=== PATIENT | male | born 1970 | race Caucasian/White ===

== ENCOUNTER → 2020-07-22 11:24 | Outpatient (CLI) | payer BC | END | disposition home or self-care (01) | LOC: D.HCCARDIO 11:24 | PROVIDERS: ATTEND Internal Medicine Cardiovascular Disease | DX: I20.9 Angina pectoris, unspecified (principal) ==

== ENCOUNTER 2020-08-11 10:35 | Day surgery (SDC) | payer BC ==
[~2020-08-11] VITALS: Ht 175.3 cm; Wt 132.5 kg
--- NOTE | ~2020-08-11 | HEMODYNAMI ---
PATIENT:REGINE SMITH MEDICAL RECORD: [id number] : 74 LOCATION:D.CAT ADMISSION DATE: 08/11/20 Generatedon:08/11/202013:33 Patient name: REGINE SMITH Patient #: [id number] : 1970 Date of study: 08/11/2020 Page: Of Hemodynamic Procedure Report Patient Data Patient Demographics Procedure consent was obtained First Name: REGINE Gender: Male Last Name: SARAH : 1970 Middle Initial: SYLVESTER Age: 49 year(s) Patient #: [id number] Race: SSN: [id number] Additional ID: [id number] Contact details Address: [place] [address] State: [place] City: [place] Zip code: [address] Admission Admission Data Admission Date: 08/11/2020 Admission Time: 10:35 Arrival Date: 08/11/2020 Arrival Time: 13:00 Admit Source: Other Insurance Payor: Private health insurance [facility] #: [id number] Lab Results Lab Result Date: 08/11/2020 Lab Result Time: 0:00 Biochemistry Name Units Result Min Max BUN mg/dl 10 --(-*--)-- 7 18 Creatinine mg/dl 1.1 --(--*-)-- 0.6 1.3 eGFR ml/min 76.27542 *-(----)-- 90 120 NONAFRICAN CBC Name Units Result Min Max Hemoglobin g/dl 16 --(--*-)-- 13.5 17.5 Procedure Procedure Types Cath Procedure Diagnostic Procedure C [facility] w/Coronaries Sedation Charges Moderate Sedation up to 15 minutes Procedure Description Procedure Date Procedure Date: 08/11/2020 Procedure Start Time: 13:17 Procedure End Time: 13:30 Procedure Staff Name Function Zachary Sommers MD Performing Physician Amanda Cid RT Monitor Rigoberto Jimenez RT Scrub Radha Myers RN Nurse Procedure Data Cath Procedure Fluoroscopy Diagnostic fluoroscopy Total fluoroscopy Time: 2.6 time: 2.6 min min Diagnostic fluoroscopy Total fluoroscopy dose: 852 dose: 852 mGy mGy Contrast Material Contrast Material Type Amount (ml) Isovue 300 57 Entry Location Entry Primary Successful Side Size Upsize Upsize Entry Closure Ruiz ccessful Closure Location (Fr) 1 (Fr) 2 (Fr) Remarks Device Remarks Radial Right 6 Fr Mechanical artery Short Compression Estimated blood loss: 5 ml Diagnostic catheters Device Type Used For End Catheter Placement DIAGNOSTIC King 110cm Multi-vessel 5Fr catheter ([id number]) Angiography DIAGNOSTIC Harman 110cm 5 Multi-vessel Fr catheter ([id number]) Angiography Procedure Complications No complications Procedure Medications Medication Administration Route Dosage Oxygen etCO2 Nasal cannula 2 l/min Heparin Flush Bag added to field 2 bags (1000units/500ml NS) Lidocaine 2% added to field 20 Radial Cocktail added to field 1 syringe (Verapamil 2mg/Nitro 400mcg/Heparin 1500units) 0.9% NaCl I.V. 100 ml/hr Fentanyl I.V. 50 mcg Versed I.V. 1 mg Fentanyl I.V. 50 mcg Versed I.V. 1 mg Radial Cocktail I.A. 1 syringe (Verapamil 2mg/Nitro 400mcg/Heparin 1500units) Hemodynamics Rest HGB: 16 (g/dl) Heart Rate: 75 (bpm) Pressure Samples Time Site Value (mmHg) Purpose Heart Use Rate(bpm) 13:20 LV 134/1,14 Snapshot 90 Gradients Valve Time Site Site Mean SEP/DFP Peak To Heart Use 1 2 (mmHg) (sec/min) Peak Rate (mmHg) (bpm) Aortic 13:21 LV AO 108 Snapshots Pre Cath Intra NCS Post Cath Vital Signs Time Heart Resp SPO2 etCO2 NIBP (mmHg) Rhythm Pain Sedation Rate (ipm) (%) (mmHg) Status Level (bpm) 13:04:35 81 19 96 23.3 135/82(106) NSR 0 (11) 10(A) , No pain 13:08:49 81 13 95 15.8 134/80(120) NSR 0 (11) 10(A) , No pain 13:12:57 82 12 96 34.6 127/82(109) NSR 0 (11) 10(A) , No pain 13:17:09 83 12 96 20.3 120/80(100) NSR 0 (11) 9(A) , No pain 13:21:23 66 13 96 24.8 113/49(71) NSR 0 (11) 9(A) , No pain 13:25:33 91 13 96 26.3 128/77(91) NSR 0 (11) 9(A) , No pain 13:29:47 85 13 96 32.4 132/76(104) NSR 0 (11) 9(A) , No pain Medications Time Medication Route Dose Verified Delivered Reason Notes Effectiveness by by 13:03:02 Oxygen etCO2 2 l/min Radha Radha for low 02 Nasal Lucia Myers, sats cannula RN RN 13:03:10 Heparin Flush added 2 bags Radha Radha used for Bag to Lucia Myers procedure (1000units/500ml field RN RN NS) 13:03:18 Lidocaine 2% added 20ml Radha Zachary for local to vial Matthieu Myers MD anesthetic field RN 13:03:29 Radial Cocktail added 1 Radha Radha for (Verapamil to syringe Lucia Myers, vasodilation 2mg/Nitro field RN RN 400mcg/Heparin 1500units) 13:03:41 0.9% NaCl I.V. 100 Radha Radha Per ml/hr Lucia Myers, physician RN RN 13:12:23 Fentanyl I.V. 50 mcg Radha Radha for sedation Lucia Myers, RN RN 13:12:29 Versed I.V. 1 mg Radha Radha for sedation Lucia Myers, RN RN 13:16:52 Fentanyl I.V. 50 mcg Radha Radha for sedation Lucia Myers, RN RN 13:16:55 Versed I.V. 1 mg Radha Radha for sedation Lucia Myers, RN RN 13:19:26 Radial Cocktail I.A. 1 Radha Zachary for (Verapamil syringe Matthieu Myers MD vasodilation 2mg/Nitro RN 400mcg/Heparin 1500units) Procedure Log Time Note 12:36:03 Diagnostic Cath Status : Elective 12:36:44 Informed consent obtained and on chart 12:38:37 Arrival Date: 08/11/2020 1:00:00 PM 12:38:59 Admit Source: Other 12:39:06 Insurance Payor : Private health insurance 12:44:51 Lab Result : BUN 10 mg/dl 12:44:51 Lab Result : eGFR NONAFRICAN 76.64162 ml/min 12:44:51 Lab Result : Hemoglobin 16 g/dl 12::51 Lab Result : Creatinine 1.1 mg/dl 12:45:06 Procedure Status Elective Heart Cath (OP). 12:45:10 Zachary Sommers MD sent for patient. Start room use. 12:45:11 Time tracking: Regular hours (M-F 7:00 - 5:00) 12:45:16 Plan of Care:Hemodynamics will remain stable., Cardiac rhythm will remain stable., Comfort level will be maintained., Respiratory function will remain adequate., Patient/ family verbilizes understanding of procedure., Procedure tolerated without complication., Recovers from procedure without complications.. 12:53:02 Patient received from Pre/Post Procedure Room to CCL 2 Alert and oriented. Tansferred to table in Supine position. 12:53:08 Warm blankets applied, and shan hugger turned on for patient comfort. 12:53:08 Correct patient and procedure confirmed by team. 12:53:09 ECG and BP/O2 sat monitors applied to patient. 12:53:10 Pre-procedure instructions explained to patient. 12:53:11 Pre-op teaching completed and patient verbalized understanding. 13:03:02 Oxygen 2 l/min etCO2 Nasal cannula was administered by Radha Myers RN; for low 02 sats; Verbal order read back and verified. 13:03:10 Heparin Flush Bag (1000units/500ml NS) 2 bags added to field was administered by Radha Myers RN; used for procedure; Verbal order read back and verified. 13:03:18 Lidocaine 2% 20ml vial added to field was administered by Zachary Sommers MD; for local anesthetic; Verbal order read back and verified. 13:03:27 Vital chart was started 13:03:29 Radial Cocktail (Verapamil 2mg/Nitro 400mcg/Heparin 1500units) 1 syringe added to field was administered by Radha Myers RN; for vasodilation; Verbal order read back and verified. 13:03:29 Baseline sample Acquired. 13:03:35 Rhythm: sinus tachycardia 13:03:36 Full Disclosure recording started 13:03:39 Family in patients room. 13:03:41 0.9% NaCl 100 ml/hr I.V. was administered by Radha Myers RN; Per physician; Verbal order read back and verified. 13:03:41 Patient NPO since Midnight. 13:03:42 Is the patient allergic to Iodine/contrast media? No. 13:03:43 Was the patient premedicated? Yes 13:03:47 Is patient on blood thinner?Yes 13:03:49 ACC The patient was administered the following blood thiners within the last 24 hours: ACCAspirin 13:03:51 Patient diabetic? No. 13:03:56 Previous problem with sedation/anesthesia? No ? 13:03:58 Snore? Yes 13:04:00 Sleep apnea? Yes 13:04:03 Deviated septum? No 13:04:04 Opens mouth fully? Yes 13:04:05 Sticks out tongue? Yes 13:04:09 Airway obstruction? No ? 13:04:13 Dentures? No ? 13:04:17 Pre procedure: right dorsailis pedis pulse 2+ Normal; easily identifiable; not easily obliterated 13:04:19 Pre procedure: left dorsailis pedis pulse 2+ Normal; easily identifiable; not easily obliterated 13:04:21 Patient pain scale 0/10 ?. 13:04:23 Modified Alcides's test Radial < 7 seconds 13:04:30 IV patent on arrival in left forearm with 0.9% NaCl at O. 13:04:33 Lab results completed and on chart. 13:04:49 Stress Test: yes; abnormal inferior 13:05:04 Right Radial & Right Groin area was prepped with chlora-prep and draped in sterile fashion 13:05:04 Alarms reviewed by R. N. 13:05:05 Sharps counted by scrub and verified by R.N. 13:05:10 Physician arrived 13:05:11 --------ALL STOP TIME OUT------ 13:05:11 Final Timeout: patient, procedure, and site verified with staff and physician. All members of the team are in agreement. 13:05:14 Right Radial & Right Groin site verified by team. 13:05:17 Fire Safety Assessment: A--An alcohol-based skin anteseptic being used preoperatively., C--Open oxygen or nitrous oxide is being used., D--An ESU, laser, or fiber-optic light is being used. 13:05:20 Physical assessment completed. ASA score P 2 - A patient with mild systemic disease as per Zachary Sommers MD. 13:06:00 2) 60-89 Mildly reduced kidney function, and other findings (as for stage 1) point to kidney disease. 13:06:32 Maximum allowable contrast dose (3.7 X eGFR X 0.75)210 ml. 13:06:36 Sedation plan: IV Moderate Sedation Medication:Versed, Fentanyl 13:06:40 Use device set Radial Dx or PCI 13:06:41 ACIST Syringe (94395) opened to sterile field. 13:06:42 Medline Cath Pack ([id number]) opened to sterile field. 13:06:42 Bag Decanter (2002S) opened to sterile field. 13:06:42 ACIST Hand Control (61705) opened to sterile field. 13:06:43 ACIST Manifold (14199) opened to sterile field. 13:06:43 Tegaderm 4 x 4 (1626W) opened to sterile field. 13:06:44 MBrace Wrist Support ([id number]) opened to sterile field. 13:06:44 NEEDLE Cook 21G 4cm Radial (M52770) opened to sterile field. 13:06:46 SHEATH 6FR RAIN (6272696) opened to sterile field. 13:06:47 EMERALD Guide Wire (031-111) opened to sterile field. 13:12:23 Fentanyl 50 mcg I.V. was administered by Radha Myers RN; for sedation; Verbal order read back and verified. 13:12:29 Versed 1 mg I.V. was administered by Radha Myers RN; for sedation; Verbal order read back and verified. 13:16:52 Fentanyl 50 mcg I.V. was administered by Radha Myers RN; for sedation; Verbal order read back and verified. 13:16:55 Versed 1 mg I.V. was administered by Radha Myers RN; for sedation; Verbal order read back and verified. 13:17:20 Procedure started. 13:17:33 Local anesthetic to right radial artery with Lidocaine 2% by Zachary Sommers MD.INITIAL ACCESS ONLY 13:18:53 Zero performed for pressure channel P1 13:19:08 A 6 Fr Short sheath was inserted into the Right Radial artery 13:19:26 Radial Cocktail (Verapamil 2mg/Nitro 400mcg/Heparin 1500units) 1 syringe I.A. was administered by Zachary Sommers MD; for vasodilation; Verbal order read back and verified. 13:19:45 A DIAGNOSTIC King 110cm 5Fr catheter (308441) was advanced over the wire and used for Multi-vessel Angiography. 13:20:53 LV hemodynamics recorded. 13:20:58 LV gram done using NICOLE 13:21:00 Injector settings: Ml/sec: 5, Volume: 15, 13:21:09 EF : 65 % 13:21:41 RCA angiography performed. 13:21:44 Injector settings: Ml/sec: 3, Volume: 6, 13:23:15 Catheter removed. 13:24:57 A DIAGNOSTIC Harman 110cm 5 Fr catheter (021981) was advanced over the wire and used for Multi-vessel Angiography. 13:25:05 LCA angiography performed. 13:25:07 Injector settings: Ml/sec: 3, Volume: 6, 13:26:25 Catheter removed. 13:26:30 ZEPHYR LARGE TR BAND (061459) opened to sterile field. 13:26:54 Sheath removed intact; hemostasis achieved with Mechanical Compression to the Right Radial artery. 13:26:56 Procedure ended.(Physican Out) 13:27:42 Fluoroscopy time 02.60 minutes. 13:27:45 Fluoroscopy dose: 852 mGy 13:27:45 Flurop Dose total: 852 13:27:52 Dose Area Product 852 mGy/cm. 13:28:05 Contrast amount:Isovue 300 57ml. 13:28:07 Maximum allowable dose exceeded? No. 13:28:08 Sharps counted by scrub and verified by R.N. 13:28:12 [place] band inflated with 10cc of air. 13:28:14 Insertion/operative site no bleeding no hematoma. 13:28:17 Post right radial artery:stable 13:28:19 Post Procedure Pulses reassessed and unchanged 13:28:22 Post procedure rhythm: unchanged. 13:28:25 Estimated blood loss: 5 ml 13:28:27 Post procedure instruction explained to patient.Patient verbalizes understanding. 13:28:27 Patient needs reinforcement of post procedure teaching. 13:29:50 Procedure type changed to Cath procedure, Diagnostic procedure, LHC, [facility] w/Coronaries, Sedation Charges, Moderate Sedation up to 15 minutes 13:29:51 Procedure and supply charges have been captured, reviewed, submitted and are correct. 13:29:55 Procedure Complication : No complications 13:29:58 Vital chart was stopped 13:30:02 [facility] Findings: mild to moderate CAD (<70%) 13:30:03 Operative report dictated upon procedure completion. 13:30:03 See physician's report for complete and final results. 13:30:05 Report given to Pre/Post Procedure Room. 13:30:08 Patient transfered to Pre/Post Procedure Room with Stretcher. 13:30:10 Procedure ended. 13:30:10 Full Disclosure recording stopped 13:30:15 End room use (Document Last) 13:32:15 End room use (Document Last) 13:32:42 End room use (Document Last) Device Usage Item Name Manufacture Quantity Catalog Hospital Part Current Minima l Lot# / Number Charge Number Stock Stock Serial# Code ACIST Acist 1 54865 [id number] [id number] [id number] 20 Syringe Medical (52964) Systems Inc Medline Medline 1 [id number] 743908 38206 127182 5 Cath Pack ([id number]) Bag Microtek 1 2001S 707058 07453 872596 5 Decanter Medical Inc. () ACIST Hand Acist 1 11871 424146 317509 552672 5 Control Medical (36516) Systems Inc ACIST Acist 1 74660 920448 320573 735647 5 Manifold Medical (11598) Systems Inc Tegaderm 4 3M 1 1626W 531925 529091 410022 5 x 4 (1626W) MBrace Advanced 1 140-0250-00 176902 75237 635977 5 Wrist Vascular Support Dynamics ([id number]) NEEDLE Cook Cook Medical 1 D37980 797169 256930 424067 5 21G 4cm Radial (G81981) SHEATH 6FR Cardinal 1 9111724 083958 4874111 009515 5 [facility] (7164851) EMERALD Cardinal 1 502-455 564346 155967 954316 5 Guide [facility] (205-907) DIAGNOSTIC Terumo 1 40-5023 053173 144784 953999 5 King 110cm 5Fr catheter (153412) DIAGNOSTIC Terumo 1 43-8778 232966 911268 407030 5 Harman 110cm 5 Fr catheter (569856) ZEPHYR Cardinal 1 405084 672066 5911508 211979 5 LARGE [facility] BAND (530392) Signature Audit [place] Stage Time Signature Unsigned Intra-Procedure 08/11/2020 Amanda Cid 1:32:15 PM RT(R) Intra-Procedure 08/11/2020 Radha Myers, 1:32:42 PM RN Intra-Procedure 08/11/2020 Zachary Sommers MD 1:33:09 PM Signatures Performing Physician : Signature : Zachary Sommers MD Date : Time : Monitor : Amanda Cid RT Signature : Date : Time : Nurse : Radha Myers, Signature : RN Date : Time : [address] [id number]
[2020-08-11] MEDS ORDERED: HYDROCODON-ACE1 EA10 PO (11:09)
[2020-08-11] MEDS ORDERED: ALBUTEROL SULF8.5 GM INH (11:10)
[2020-08-11 11:19] VITALS: BP 136/70; Ht 175.3 cm; Wt 132.5 kg
[2020-08-11] MEDS ORDERED: BAYER CHEWABLE81 MG PO (11:25)
[2020-08-11] MEDS ORDERED: CELEXA40 MG PO (11:26)
[2020-08-11] MEDS ORDERED: AVAPRO300 MG PO (11:26)
[2020-08-11 11:27] LABS: BASOPHILS 1.1 % (0-2); EOSINOPHILS 5.3 % (0-7); HEMATOCRIT 45.5 % (42.0-54.0); IMMATURE GRANULOCYTES 0.4 % (0-5); LYMPHOCYTES 30.7 % (15-50); MCH 31.1 pg (26.0-34.0); MCHC 35.2 g/dL (31.0-37.0); MCV 88.3 fL (80.0-100.0); MEAN PLATELET VOLUME 9.7 fL (7.4-10.4); MONOCYTES 8.2 % (2-11); NEUTROPHILS 54.3 % (40-80); PLATELET COUNT 245 10x3/uL (130-400); RBC 5.15 10x6/uL (4.20-6.10); RDW 12.9 % (11.5-14.5); WBC 5.3 10x3/uL (4.8-10.8)
[2020-08-11 11:35] LABS: ALT (SGPT) 38 U/L (10-68); CALC OSMOLALITY 271 mosm/kg (275-300); CALCIUM 8.8 mg/dL (8.5-10.1); CARBON DIOXIDE 25.9 mmol/L (21.0-32.0); CHLORIDE - SERUM 104 mmol/L (98-107); CHOL - HDL RATIO 4.8 ratio (2.3-4.9); CHOLESTEROL, TOTAL 215 mg/dL (0-200); CREATININE - SERUM 1.1 mg/dL (0.6-1.3); GLUCOSE 109 mg/dL (74-106); HDL CHOLESTEROL 45 mg/dL (32-96); LDL CHOLESTEROL 145 mg/dL (0-100); LDL-HDL RATIO 3.2 ratio (1.5-3.5); POTASSIUM - SERUM 3.9 mmol/L (3.5-5.1); SODIUM 136 mmol/L (136-145); TRIGLYCERIDE 128 mg/dL (30-200); UREA NITROGEN 10 mg/dL (7-18); eGFR NON AFRICAN AMERICAN 76 mL/min (90-120)
--- NOTE | 2020-08-11 13:40 | NUR ---
PT REC'D TO ROOM 5 VIA STRETCHER FROM DISPENSING OPERATOR. MONITORS ESTAB. AT BS. SEE VOLUNTEER COORDINATOR. ALARMS ON AND C/L IN REACH.
--- NOTE | 2020-08-11 13:55 | NUR ---
R WRIST SITE C/D/I, NO S/S BLEEDING OR SWELLING. PULSES PALP. VSS. R ARM/HAND WARM. PT GIVEN COLA PER REQUEST. ALARMS ON AND C/L IN REACH.
--- NOTE | 2020-08-11 14:25 | NUR ---
R WRIST Z BAND SITE C/D/I, NO S/S BLEEDING OR HEMATOMA. R ARM/HAND WARM WITH PALP PULSES AND BRISK CAP REFILL. VSS. PT DENIES PAIN OR NEEDS. REMAINS AT BS. C/L IN REACH.
--- NOTE | 2020-08-11 14:40 | NUR ---
R WRIST SITE C/D/I, NO S/S BLEEDING OR HEMATOMA. R ARM/HAND WARM WITH PALP PULSES AND BRISK CAP REFILL. WILL BEGIN REMOVING AIR FROM Z BAND PER MD ORDERS.
--- NOTE | 2020-08-11 14:55 | NUR ---
5 CC AIR REMOVED FROM Z BAND, NO S/S BLEEDING OR HEMATOMA. VSS.
--- NOTE | 2020-08-11 15:10 | NUR ---
ALL AIR REMOVED FROM Z BAND. NO S/S BLEEDING OR HEMATOMA. R ARM/HAND WARM WITH PALP PULSES. VSS. C/L IN REACH.
--- NOTE | 2020-08-11 15:20 | NUR ---
R WRIST SITE C/D/I, NO S/S BLEEDING OR HEMATOMA. VSS.
--- NOTE | 2020-08-11 15:25 | NUR ---
DR. THOMAS AT BS TO UPDATE PT AND .
--- NOTE | 2020-08-11 15:35 | NUR ---
ALL DISCHARGE INSTRUCTIONS INCLUDING RESTRICTIONS, MEDS AND F/U APPT REVIEWED, BOTH PT AND VERBALIZE UNDERSTANDING. PIV D/C'D INTACT, DSG APPLIED. Z BAND OFF, NO S/S BLEEDING OR HEMATOMA - DSG APPLIED. PT ALLOWED UP TO GET DRESSED AND GO TO BR INDEPENDENTLY.
--- NOTE | 2020-08-11 15:50 | NUR ---
PT DISCHARGED TO PRIVATE VEHICLE VIA . PT HAS ALL PAPERWORK AND BELONGINGS.
== END 2020-08-11 15:50 | disposition home or self-care (01) ==
LOC: D.CATH 10:35
PROVIDERS: ATTEND Internal Medicine Cardiovascular Disease
DX: I20.9 Angina pectoris, unspecified (principal); R07.9 Chest pain, unspecified; I10 Essential (primary) hypertension; R94.31 Abnormal electrocardiogram [ECG] [EKG]